=== PATIENT | female | born 1955 | race Caucasian/White ===

== ENCOUNTER → 2016-10-27 | Outpatient (CLI) | payer OTHER | LOC: COL.VAS 06:25 | DX: N28.0 Ischemia and infarction of kidney (principal); I71.4 Abdominal aortic aneurysm, without rupture; R79.0 Abnormal level of blood mineral | CPT/HCPCS: A9562 ==

== ENCOUNTER → 2016-12-17 | Outpatient (CLI) | payer OTHER | LOC: MC.RAD 09:39 | DX: Z12.31 Encounter for screening mammogram for malignant neoplasm of breast (principal) ==

== ENCOUNTER → 2017-02-17 | Outpatient (CLI) | payer OTHER | LOC: COL.PUL 08:00 | DX: Z01.818 Encounter for other preprocedural examination (principal); I71.4 Abdominal aortic aneurysm, without rupture ==

== ENCOUNTER → 2018-01-04 | Outpatient (CLI) | payer OTHER | LOC: MC.RAD 11:30 | DX: Z12.31 Encounter for screening mammogram for malignant neoplasm of breast (principal) ==

== ENCOUNTER 2018-03-14 06:54 | Day surgery (SDC) | payer OTHER ==
[~2018-03-14] VITALS: Ht 170.2 cm; Wt 79.0 kg
[2018-03-14 07:14] VITALS: BP 147/93; PULSE 61; TEMP 97.7
[2018-03-14] MEDS ORDERED: ASPIRIN 81M81 MG/TA2 PO (07:18)
[2018-03-14] MEDS ORDERED: NORVASC2.5 MG PO (07:20)
[2018-03-14] MEDS ORDERED: COREG 25MG25 MG/TAB PO (07:21)
[2018-03-14] MEDS ORDERED: COLACE 100100 MG/CAP PO (07:34)
[2018-03-14] MEDS ORDERED: CATAPRES-TTS 10.1 M1 TD (07:34)
[2018-03-14] MEDS ORDERED: EPA FISH OIL1 SGL PO (07:35)
[2018-03-14] MEDS ORDERED: NATURAL IRON65 MG PO (07:35)
[2018-03-14] MEDS ORDERED: PRAVACHOL10 MG PO (07:36)
[2018-03-14] MEDS ORDERED: MULTIPLE VITAMI1 CAP PO (07:37)
[2018-03-14] MEDS ORDERED: ZANTAC 7575 MG PO (07:39)
[2018-03-14] MEDS ORDERED: PROBIOTIC FORMU1 CAP PO (07:39)
[2018-03-14] MEDS ORDERED: SYNALAR CR0.160GM TP (07:42)
[2018-03-14] MEDS ORDERED: DIFLORASONE TP (07:43)
[2018-03-14] MEDS ORDERED: LASIX 20MG TABL20 MG PO (07:44)
[2018-03-14] MEDS ORDERED: HYGROTON 2525 MG/TAB PO (07:46)
[2018-03-14] MEDS ORDERED: APRESOLINE 25MG25 MG PO (07:47)
[2018-03-14] MEDS ORDERED: ALDACTONE50 MG PO (07:47)
[2018-03-14 09:00] VITALS: BP 137/77; PULSE 56; TEMP 98.6
[2018-03-14 09:15] VITALS: BP 145/77; PULSE 51
[2018-03-14 09:30] VITALS: BP 152/78; PULSE 50
== END 2018-03-14 09:45 | disposition home or self-care (01) ==
LOC: SDCO 06:54
DX: D12.4 Benign neoplasm of descending colon (principal); K63.5 Polyp of colon; K57.30 Diverticulosis of large intestine without perforation or abscess without bleeding; K64.0 First degree hemorrhoids; I10 Essential (primary) hypertension; E78.00 Pure hypercholesterolemia, unspecified; R56.9 Unspecified convulsions; K21.9 Gastro-esophageal reflux disease without esophagitis; L40.9 Psoriasis, unspecified; I71.4 Abdominal aortic aneurysm, without rupture; N18.6 End stage renal disease; Z79.82 Long term (current) use of aspirin; Z88.8 Allergy status to other drugs, medicaments and biological substances; Z91.040 Latex allergy status; Z86.010 Personal history of colon polyps
CPT/HCPCS: OP; J2250; J3010; J7030

== ENCOUNTER → 2019-03-01 | Outpatient (CLI) | payer OTHER ==
[~2019-03-01] MED LIST: ALDACTONE50 MG PO; APRESOLINE 25MG25 MG PO; ASPIRIN 81M81 MG/TA2 PO; CATAPRES-TTS 10.1 M1 TD; COLACE 100100 MG/CAP PO; COREG 25MG25 MG/TAB PO; DIFLORASONE TP; EPA FISH OIL1 SGL PO; HYGROTON 2525 MG/TAB PO; LASIX 20MG TABL20 MG PO; MULTIPLE VITAMI1 CAP PO; NATURAL IRON65 MG PO; NORVASC2.5 MG PO; PRAVACHOL10 MG PO; PROBIOTIC FORMU1 CAP PO; SYNALAR CR0.160GM TP; ZANTAC 7575 MG PO
== END ==
LOC: MC.RAD 12:52
DX: Z12.31 Encounter for screening mammogram for malignant neoplasm of breast (principal)